=== PATIENT | male | born 1970 | race Caucasian/White ===

== ENCOUNTER 2018-07-10 05:56 | Day surgery (SDC) | payer OTHER ==
[~2018-07-10] VITALS: Ht 182.9 cm; Wt 120.5 kg
[~2018-07-10 05:56] MED LIST: AMLO-150 PO; ATOR20TA37 PO; CALC1TAB41 PO; DAPA1TAB6 PO; IRBE1TAB13 PO; VITA200C33 PO
[2018-07-10] MEDS ORDERED: BUPIVACAINE/PF-EPI 0.5% 1:200K ONE (06:29)
[2018-07-10] MEDS ORDERED: LACTATED RINGERS 1,000 ML IV SCH (06:50)
[2018-07-10] MEDS ORDERED: ONDANSETRON ODT 8 MG PO ONE (07:00)
[2018-07-10] MEDS ORDERED: ACETAMINOPHEN 500 MG TABLET PO ONE (07:00)
[2018-07-10] MEDS ORDERED: FENTANYL PF 100 MCG/2ML ONE ×2 (07:18→08:07)
[2018-07-10] MEDS ORDERED: MIDAZOLAM 1 MG/ML, 2ML ONE (07:18)
[2018-07-10] MEDS ORDERED: KETOROLAC 30 MG/1 ML IV PRN (07:30)
[2018-07-10] MEDS ORDERED: hydrALAzine 20 MG/ML, 1ML IV PRN (07:30)
[2018-07-10] MEDS ORDERED: METOCLOPRAMIDE 5 MG/ML, 2ML IV PRN (07:30)
[2018-07-10] MEDS ORDERED: FENTANYL PF 100 MCG/2ML IV PRN (07:30)
[2018-07-10] MEDS ORDERED: HYDROmorphone 2 MG/ML, 1ML IVPush PRN (07:30)
[2018-07-10] MEDS ORDERED: LABETALOL 5MG/ML, 20ML IV PRN (07:30)
[2018-07-10] MEDS ORDERED: OXYcodone 5 MG/5 ML ORAL.SOL UDC PO PRN (07:30)
[2018-07-10] MEDS ORDERED: LORazepam 2 MG/ML, 1ML IVPush PRN (07:30)
[2018-07-10] MEDS ORDERED: PROPOFOL 10 MG/ML, 20ML ONE (07:45)
[2018-07-10] MEDS ORDERED: BUPIVACAINE/EPI 0.5% 1:200K INFIL ONE (08:02)
[2018-07-10] MEDS ORDERED: OXYcodone 5 MG/5 ML ORAL.SOL UDC ONE (08:51)
== END 2018-07-10 12:10 | disposition home or self-care (01) ==
LOC: OUT 05:56
PROVIDERS: ATTEND Colon & Rectal Surgery
DX: K60.3 Anal fistula (principal); E11.9 Type 2 diabetes mellitus without complications; E78.00 Pure hypercholesterolemia, unspecified; I10 Essential (primary) hypertension; E78.5 Hyperlipidemia, unspecified; Z79.899 Other long term (current) drug therapy; Z98.890 Other specified postprocedural states; Z72.89 Other problems related to lifestyle; Z87.891 Personal history of nicotine dependence; Z79.84 Long term (current) use of oral hypoglycemic drugs
CPT/HCPCS: 46275; 82962; C1729; J2250; J2704; J3010; J7120; Q0162